=== PATIENT | male | born 1965 | race African-American/Black ===

== ENCOUNTER 2017-02-10 23:59 | Emergency (ER) | payer MEDICAID, OTHER ==
[~2017-02-10] VITALS: Ht 180.3 cm; Wt 86.2 kg
[~2017-02-10 23:59] MED LIST: ATOR20TA PO; BENA20TA3 PO; INSLAN SQ
[2017-02-11] MEDS ORDERED: IBUPROFEN 600MG TABLET PO STA (02:19)
[2017-02-11] MEDS ORDERED: SODIUM CHLORIDE 0.9% 1,000 ML IV ONE (02:19)
[2017-02-11 02:42] LABS: HEMATOCRIT. 27.9 % (42.0-52.0); HEMOGLOBIN. 9.5 g/dL (14.0-18.0); LYMPHOCYTES % 26.2 % (20.0-50.0); MEAN CORPUSCULAR HEMOGLOBIN 30.3 pg (28.0-32.0); MEAN CORPUSCULAR VOLUME 88.8 fL (80.0-94.0); MEAN PLATELET VOLUME 7.6 fl (7.4-10.4); MONOCYTES % 6.5 % (2.0-8.0); NEUTROPHILS % 62.3 % (40.0-76.0); PLATELET 300 x1000/uL (130-400); RED BLOOD CELL COUNT 3.14 mill/uL (4.7-6.1); RED CELL DISTRIBUTION WIDTH 13.6 % (11.6-14.6)
[2017-02-11 05:00] VITALS: BP 141/72
== END 2017-02-11 05:15 | disposition home or self-care (01) ==
LOC: ER 23:59
DX: R45.1 Restlessness and agitation (principal); N28.9 Disorder of kidney and ureter, unspecified; E11.65 Type 2 diabetes mellitus with hyperglycemia; E78.00 Pure hypercholesterolemia, unspecified; I10 Essential (primary) hypertension; G40.909 Epilepsy, unspecified, not intractable, without status epilepticus; D64.9 Anemia, unspecified; R51 Headache; R00.2 Palpitations; Z79.4 Long term (current) use of insulin
CPT/HCPCS: 36415; 80048; 82962; 85025; 93005; 96360; 99285; Z7610; J7030

== ENCOUNTER 2017-08-23 23:17 | Emergency (ER) | payer OTHER ==
[~2017-08-23] VITALS: Ht 182.9 cm; Wt 91.0 kg
[2017-08-23] MEDS ORDERED: MORPHINE SULFATE 4 MG/ML CPJ (NOT FOR IM USE) IV STA (23:54)
[2017-08-23] MEDS ORDERED: ONDANSETRON HCL 4MG/2ML VIAL IV STA (23:54)
[2017-08-24 00:14] LABS: BASOPHILS % 0.5 % (0.0-2.0); EOSINOPHILS % 4.4 % (0.0-5.0); HEMOGLOBIN. 10.5 g/dL (14.0-18.0); LYMPHOCYTES % 18.8 % (20.0-50.0); MEAN CORPUSCULAR HEMOGLOBIN 30.8 pg (28.0-32.0); MEAN CORPUSCULAR VOLUME 91.2 fL (80.0-94.0); MEAN PLATELET VOLUME 7.9 fl (7.4-10.4); MONOCYTES % 5.7 % (2.0-8.0); NEUTROPHILS % 70.6 % (40.0-76.0); PLATELET 306 x1000/uL (130-400); RED CELL DISTRIBUTION WIDTH 14.2 % (11.6-14.6)
[2017-08-24 00:27] LABS: CHLORIDE 106 mEq/L (98-107)
[2017-08-24 02:03] VITALS: BP 153/95
== END 2017-08-24 02:30 | disposition home or self-care (01) ==
LOC: ER 23:17
DX: S29.8XXA Other specified injuries of thorax, initial encounter (principal); N28.9 Disorder of kidney and ureter, unspecified; R56.9 Unspecified convulsions; I10 Essential (primary) hypertension; E78.00 Pure hypercholesterolemia, unspecified; E11.9 Type 2 diabetes mellitus without complications; Z79.4 Long term (current) use of insulin; Z98.890 Other specified postprocedural states; Y08.89XA Assault by other specified means, initial encounter; Y93.89 Activity, other specified; Y92.89 Other specified places as the place of occurrence of the external cause; Y99.8 Other external cause status
CPT/HCPCS: 36415; 71045; 73030; 80053; 84484; 85025; 93005; 96374; 96375; 99285; J2270; J2405; Z7610

== ENCOUNTER 2019-10-11 19:50 | Inpatient (IN) | payer OTHER ==
[~2019-10-11] VITALS: Ht 185.4 cm; Wt 88.5 kg
[~2019-10-11 19:50] MED LIST changes: +BENA20TA10 PO; -BENA20TA3 PO
[2019-10-11 20:42] LABS: BASOPHILS % 1.2 % (0.0-2.0); EOSINOPHILS % 2.1 % (0.0-5.0); HEMATOCRIT. 32.9 % (42.0-52.0); HEMOGLOBIN. 11.4 g/dL (14.0-18.0); LYMPHOCYTES % 30.4 % (20.0-50.0); MEAN CORPUSCULAR HEMOGLOBIN 30.9 pg (28.0-32.0); MEAN CORPUSCULAR VOLUME 89.5 fL (80.0-94.0); MEAN PLATELET VOLUME 7.8 fl (7.4-10.4); MONOCYTES % 7.3 % (2.0-8.0); PLATELET 284 x1000/uL (130-400); RED BLOOD CELL COUNT 3.68 mill/uL (4.7-6.1); RED CELL DISTRIBUTION WIDTH 15.5 % (11.6-14.6)
[2019-10-11 20:43] LABS: INR 0.9; PROTHROMBIN TIME 10.2 sec (9.6-11.0)
[2019-10-11 20:47] LABS: CHLORIDE 101 mEq/L (98-107)
[2019-10-11 20:51] LABS: ETHANOL BLOOD < 10 mg/dL
[2019-10-11 20:53] LABS: LDL CHOLESTEROL 104 mg/dL (5-100)
[2019-10-11] MEDS ORDERED: ASPIRIN 325MG EC TABLET PO SCH (21:30)
[2019-10-11 23:20] VITALS: BP 134/95
[2019-10-12] MEDS ORDERED: DEXTROSE 50% WATER 50ML SYRINGE IV PRN (01:45)
[2019-10-12] MEDS ORDERED: MORPHINE SULFATE 2 MG/ML CPJ (NOT FOR IM USE) IV PRN (01:45)
[2019-10-12] MEDS ORDERED: HEPARIN BOLUS PRN aPTT 30-44 IV (02:15)
[2019-10-12] MEDS ORDERED: HEPARIN 60 UNITS/KG BOLUS IV SCH (02:15)
[2019-10-12] MEDS ORDERED: HEPARIN BOLUS PRN aPTT <30 IV (02:15)
[2019-10-12] MEDS ORDERED: HEPARIN 25,000 UNITS PREMIX 500 ML IV SCH (02:30)
[2019-10-12 04:00] VITALS: BP 187/107
[2019-10-12] MEDS ORDERED: NITROGLYCERIN OINT 1GM/INCH UDPKT TD SCH (06:00)
[2019-10-12] MEDS: SEVELAMER CARBONATE 800 MG TABLET PO SCH ×3 (06:56→17:50)
[2019-10-12] MEDS: BLOOD SUGAR DIAGNOSTIC STRIP TEST SCH ×4 (06:56→20:24)
[2019-10-12] MEDS: INSULIN LISPRO 100 UNITS/ML SUBCUT SCH ×4 (06:56→21:28)
[2019-10-12 08:00] VITALS: BP 171/98
[2019-10-12] MEDS ORDERED: CLONIDINE 0.1MG TABLET PO PRN ×2 (08:15→09:30)
[2019-10-12] MEDS ORDERED: METOPROLOL TARTRATE 50MG TABLET PO SCH (09:00)
[2019-10-12] MEDS ORDERED: HEPARIN 5000 UNITS/ML VIAL SUBCUT SCH (09:00)
[2019-10-12] MEDS: ASPIRIN 325MG EC TABLET PO SCH (09:48)
[2019-10-12] MEDS: FOLIC ACID/VITAMIN B COMP W-C TABLET PO SCH (09:48)
[2019-10-12] MEDS: INSULIN GLARGINE UD 100 UNITS/ML SYR SUBCUT SCH ×2 (10:00→21:29)
[2019-10-12] MEDS: SODIUM CHLORIDE 0.45% 1,000 ML IV SCH (10:19)
[2019-10-12 12:00] VITALS: BP 185/102
[2019-10-12] MEDS: ENOXAPARIN 100MG/ML SYR SUBCUT SCH (13:27)
[2019-10-12] MEDS: NITROGLYCERIN OINT 1GM/INCH UDPKT TD SCH ×2 (13:49→21:49)
[2019-10-12 14:00] VITALS: BP 170/98
[2019-10-12 16:00] VITALS: BP 170/98
[2019-10-12 20:00] VITALS: BP 227/111
[2019-10-12] MEDS ORDERED: AMLODIPINE 5MG TABLET PO SCH (21:00)
[2019-10-12] MEDS: ATORVASTATIN CALCIUM 40MG TABLET PO SCH (21:27)
[2019-10-12] MEDS ORDERED: CLONIDINE 0.2MG TABLET PO PRN (21:30)
[2019-10-12] MEDS: CLONIDINE 0.2MG TABLET PO PRN (21:49)
[2019-10-13] VITALS: BP 178/99
[2019-10-13] MEDS: SODIUM CHLORIDE 0.45% 1,000 ML IV SCH ×3 (00:02→23:45)
[2019-10-13 04:00] VITALS: BP 173/94
[2019-10-13] MEDS: BLOOD SUGAR DIAGNOSTIC STRIP TEST SCH ×4 (06:56→20:44)
[2019-10-13] MEDS: NITROGLYCERIN OINT 1GM/INCH UDPKT TD SCH ×3 (06:56→18:14)
[2019-10-13 07:44] LABS: BASOPHILS % 0.6 % (0.0-2.0); EOSINOPHILS % 0.5 % (0.0-5.0); HEMATOCRIT. 32.9 % (42.0-52.0); HEMOGLOBIN. 11.2 g/dL (14.0-18.0); LYMPHOCYTES % 16.2 % (20.0-50.0); MEAN CORPUSCULAR HEMOGLOBIN 30.8 pg (28.0-32.0); MEAN CORPUSCULAR VOLUME 90.5 fL (80.0-94.0); MONOCYTES % 4.3 % (2.0-8.0); NEUTROPHILS % 78.4 % (40.0-76.0); PLATELET 306 x1000/uL (130-400); RED BLOOD CELL COUNT 3.63 mill/uL (4.7-6.1); RED CELL DISTRIBUTION WIDTH 15.4 % (11.6-14.6)
[2019-10-13 08:00] VITALS: BP 130/64
[2019-10-13 08:07] LABS: CHLORIDE 104 mEq/L (98-107)
[2019-10-13 08:17] LABS: PHOSPHORUS 4.1 mg/dL (2.5-4.9)
[2019-10-13] MEDS: SEVELAMER CARBONATE 800 MG TABLET PO SCH ×3 (08:26→18:14)
[2019-10-13] MEDS: ASPIRIN 325MG EC TABLET PO SCH (08:27)
[2019-10-13] MEDS: FOLIC ACID/VITAMIN B COMP W-C TABLET PO SCH (08:27)
[2019-10-13] MEDS: CLONIDINE 0.2MG TABLET PO PRN (08:27)
[2019-10-13] MEDS: INSULIN LISPRO 100 UNITS/ML SUBCUT SCH ×4 (08:28→20:45)
[2019-10-13] MEDS: AMLODIPINE 5MG TABLET PO SCH (09:00)
[2019-10-13] MEDS ORDERED: HYDRALAZINE 20MG/ML VIAL IV PRN (10:30)
[2019-10-13] MEDS: INSULIN GLARGINE UD 100 UNITS/ML SYR SUBCUT SCH (11:08)
[2019-10-13 12:00] VITALS: BP 131/78
[2019-10-13] MEDS: ENOXAPARIN 100MG/ML SYR SUBCUT SCH (12:45)
[2019-10-13 18:44] LABS: CANNABINOID URINE SCREEN NEGATIVE (NEGATIVE); METHADONE URINE SCREEN NEGATIVE (NEGATIVE); OPIATES URINE SCREEN NEGATIVE (NEGATIVE); PHENCYCLIDINE URINE SCREEN NEGATIVE (NEGATIVE)
[2019-10-13 18:46] LABS: *AMPHETAMINES SCREEN URINE NEGATIVE (NEGATIVE); *BARBITURATES SCREEN URINE NEGATIVE (NEGATIVE); *BENZODIAZEPINES SCREEN URINE NEGATIVE (NEGATIVE); *COCAINE SCREEN URINE NEGATIVE (NEGATIVE)
[2019-10-13 20:00] VITALS: BP 171/103
[2019-10-14] VITALS: BP 161/85
[2019-10-14] MEDS: INSULIN GLARGINE UD 100 UNITS/ML SYR SUBCUT SCH ×3 (02:23→21:52)
[2019-10-14] MEDS: ATORVASTATIN CALCIUM 40MG TABLET PO SCH ×2 (02:25→20:57)
[2019-10-14] MEDS: AMLODIPINE 5MG TABLET PO SCH ×3 (02:26→20:57)
[2019-10-14 04:00] VITALS: BP 144/84
[2019-10-14] MEDS: BLOOD SUGAR DIAGNOSTIC STRIP TEST SCH ×4 (06:30→20:58)
[2019-10-14] MEDS: SEVELAMER CARBONATE 800 MG TABLET PO SCH ×3 (07:50→17:57)
[2019-10-14 08:00] VITALS: BP 147/86
[2019-10-14] MEDS: FOLIC ACID/VITAMIN B COMP W-C TABLET PO SCH (09:00)
[2019-10-14 12:00] VITALS: BP 148/81
[2019-10-14 12:38] LABS: BASOPHILS % 0.9 % (0.0-2.0); EOSINOPHILS % 0.5 % (0.0-5.0); HEMATOCRIT. 30.9 % (42.0-52.0); HEMOGLOBIN. 10.6 g/dL (14.0-18.0); LYMPHOCYTES % 24.4 % (20.0-50.0); MEAN CORPUSCULAR HEMOGLOBIN 30.8 pg (28.0-32.0); MEAN CORPUSCULAR VOLUME 89.7 fL (80.0-94.0); MEAN PLATELET VOLUME 7.3 fl (7.4-10.4); MONOCYTES % 6.1 % (2.0-8.0); NEUTROPHILS % 68.1 % (40.0-76.0); PLATELET 310 x1000/uL (130-400); RED BLOOD CELL COUNT 3.44 mill/uL (4.7-6.1); RED CELL DISTRIBUTION WIDTH 15.4 % (11.6-14.6)
[2019-10-14] MEDS: INSULIN LISPRO 100 UNITS/ML SUBCUT SCH ×3 (13:38→21:22)
[2019-10-14] MEDS: METOPROLOL TARTRATE 25MG TABLET PO SCH ×2 (13:38→20:58)
[2019-10-14 16:00] VITALS: BP 156/87
[2019-10-14 16:09] LABS: BASOPHILS % 0.9 % (0.0-2.0); EOSINOPHILS % 0.8 % (0.0-5.0); HEMATOCRIT. 32.8 % (42.0-52.0); LYMPHOCYTES % 22.2 % (20.0-50.0); MEAN CORPUSCULAR HEMOGLOBIN 30.3 pg (28.0-32.0); MEAN CORPUSCULAR VOLUME 90.2 fL (80.0-94.0); MEAN PLATELET VOLUME 7.6 fl (7.4-10.4); MONOCYTES % 7.1 % (2.0-8.0); PLATELET 340 x1000/uL (130-400); RED BLOOD CELL COUNT 3.63 mill/uL (4.7-6.1); RED CELL DISTRIBUTION WIDTH 15.2 % (11.6-14.6)
[2019-10-14 16:16] LABS: CHLORIDE 105 mEq/L (98-107)
[2019-10-14 20:00] VITALS: BP 191/93
[2019-10-15] VITALS: BP 156/80
[2019-10-15 04:00] VITALS: BP 159/84
[2019-10-15] MEDS: BLOOD SUGAR DIAGNOSTIC STRIP TEST SCH ×4 (06:25→21:44)
[2019-10-15] MEDS: INSULIN LISPRO 100 UNITS/ML SUBCUT SCH ×4 (07:15→21:44)
[2019-10-15] MEDS: SEVELAMER CARBONATE 800 MG TABLET PO SCH ×3 (07:55→16:44)
[2019-10-15 08:00] VITALS: BP 162/91
[2019-10-15] MEDS: METOPROLOL TARTRATE 25MG TABLET PO SCH (09:35)
[2019-10-15] MEDS: FOLIC ACID/VITAMIN B COMP W-C TABLET PO SCH (09:35)
[2019-10-15] MEDS: AMLODIPINE 5MG TABLET PO SCH ×2 (09:36→21:20)
[2019-10-15 12:00] VITALS: BP 169/83
[2019-10-15] MEDS ORDERED: ACETAMINOPHEN WITH CODEINE 300/30MG TABLET PO NR (12:00)
[2019-10-15] MEDS: LOSARTAN POTASSIUM 50 MG TABLET PO SCH (13:23)
[2019-10-15] MEDS: INSULIN GLARGINE UD 100 UNITS/ML SYR SUBCUT SCH ×2 (13:30→22:07)
[2019-10-15 16:00] VITALS: BP 155/83
[2019-10-15] MEDS ORDERED: ACETAMINOPHEN WITH CODEINE 300/30MG TABLET PO PRN (16:00)
[2019-10-15 16:53] LABS: PHOSPHORUS 1.4 mg/dL (2.5-4.9)
[2019-10-15 20:00] VITALS: BP 184/86
[2019-10-15] MEDS: METOPROLOL TARTRATE 50MG TABLET PO SCH (21:20)
[2019-10-15] MEDS: ATORVASTATIN CALCIUM 40MG TABLET PO SCH (21:20)
[2019-10-16 00:12] VITALS: BP 167/80
[2019-10-16 04:53] VITALS: BP 130/70
[2019-10-16] MEDS: BLOOD SUGAR DIAGNOSTIC STRIP TEST SCH ×4 (06:45→20:51)
[2019-10-16] MEDS: INSULIN LISPRO 100 UNITS/ML SUBCUT SCH ×4 (07:50→21:05)
[2019-10-16 08:00] VITALS: BP 165/93
[2019-10-16] MEDS: FOLIC ACID/VITAMIN B COMP W-C TABLET PO SCH (08:41)
[2019-10-16] MEDS: AMLODIPINE 5MG TABLET PO SCH ×2 (08:41→21:03)
[2019-10-16] MEDS: LOSARTAN POTASSIUM 50 MG TABLET PO SCH (08:41)
[2019-10-16] MEDS: ASPIRIN 81MG TABLET PO SCH (08:41)
[2019-10-16] MEDS: SEVELAMER CARBONATE 800 MG TABLET PO SCH ×3 (08:41→18:13)
[2019-10-16] MEDS: METOPROLOL TARTRATE 50MG TABLET PO SCH ×2 (08:41→21:03)
[2019-10-16] MEDS: CLONIDINE 0.2MG TABLET PO PRN (08:43)
[2019-10-16 08:59] LABS: BASOPHILS % 0.9 % (0.0-2.0); EOSINOPHILS % 1.7 % (0.0-5.0); HEMATOCRIT. 33.6 % (42.0-52.0); HEMOGLOBIN. 11.5 g/dL (14.0-18.0); LYMPHOCYTES % 26.7 % (20.0-50.0); MEAN CORPUSCULAR HEMOGLOBIN 30.9 pg (28.0-32.0); MEAN CORPUSCULAR VOLUME 90.4 fL (80.0-94.0); MEAN PLATELET VOLUME 7.6 fl (7.4-10.4); MONOCYTES % 5.8 % (2.0-8.0); NEUTROPHILS % 64.9 % (40.0-76.0); PLATELET 321 x1000/uL (130-400); RED BLOOD CELL COUNT 3.71 mill/uL (4.7-6.1)
[2019-10-16 09:15] LABS: PHOSPHORUS 4.1 mg/dL (2.5-4.9)
[2019-10-16] MEDS: INSULIN GLARGINE UD 100 UNITS/ML SYR SUBCUT SCH ×2 (10:00→22:34)
[2019-10-16 12:00] VITALS: BP_SYST 161; BP_SYST 162; BP_DIAS 91
[2019-10-16] MEDS: CLONIDINE 0.2MG TABLET PO SCH ×2 (13:40→22:33)
[2019-10-16 16:03] VITALS: BP 116/71
[2019-10-16] MEDS ORDERED: HYDRALAZINE 20MG/ML VIAL IV PRN (18:15)
[2019-10-16 20:00] VITALS: BP 177/92
[2019-10-16] MEDS: ATORVASTATIN CALCIUM 40MG TABLET PO SCH (21:02)
[2019-10-17] VITALS (20 sets, daily range): BP systolic 96–175; BP diastolic 49–99
[2019-10-17] MEDS: CLONIDINE 0.2MG TABLET PO SCH ×3 (05:47→22:00)
[2019-10-17 06:46] LABS: BASOPHILS % 1.3 % (0.0-2.0); EOSINOPHILS % 3.1 % (0.0-5.0); HEMATOCRIT. 30.8 % (42.0-52.0); HEMOGLOBIN. 10.8 g/dL (14.0-18.0); LYMPHOCYTES % 36.2 % (20.0-50.0); MEAN CORPUSCULAR HEMOGLOBIN 31.5 pg (28.0-32.0); MEAN CORPUSCULAR VOLUME 89.8 fL (80.0-94.0); MEAN PLATELET VOLUME 7.8 fl (7.4-10.4); MONOCYTES % 5.1 % (2.0-8.0); NEUTROPHILS % 54.3 % (40.0-76.0); PLATELET 317 x1000/uL (130-400); RED BLOOD CELL COUNT 3.43 mill/uL (4.7-6.1); RED CELL DISTRIBUTION WIDTH 15.2 % (11.6-14.6)
[2019-10-17 06:59] LABS: PHOSPHORUS 4.7 mg/dL (2.5-4.9)
[2019-10-17] MEDS ORDERED: ALTEPLASE 2MG/VIAL ITC NR (07:15)
[2019-10-17] MEDS: BLOOD SUGAR DIAGNOSTIC STRIP TEST SCH ×4 (07:20→21:00)
[2019-10-17] MEDS: SEVELAMER CARBONATE 800 MG TABLET PO SCH ×3 (07:50→18:28)
[2019-10-17] MEDS: INSULIN LISPRO 100 UNITS/ML SUBCUT SCH ×4 (07:50→22:20)
[2019-10-17] MEDS ORDERED: SODIUM BICARBONATE 4% (2.4MEQ) 5ML VIAL IV ONE (07:58)
[2019-10-17] MEDS ORDERED: IOHEXOL-300 100 ML BOTTLE ONE (07:59)
[2019-10-17] MEDS ORDERED: LIDOCAINE HCL 1% 20ML VIAL (Pyxis) INJ ONE (07:59)
[2019-10-17] MEDS ORDERED: FENTANYL CITRATE/PF 50MCG/ML 2ML VIAL ONE (08:34)
[2019-10-17] MEDS ORDERED: HEPARIN 1000 UNITS/ML 10ML ONE (08:46)
[2019-10-17] MEDS ORDERED: HEPARIN 1000 UNITS/ML 10ML IV ONE (09:00)
[2019-10-17] MEDS: METOPROLOL TARTRATE 50MG TABLET PO SCH ×2 (09:00→21:00)
[2019-10-17] MEDS ORDERED: IOHEXOL-300 50 ML BOTTLE IV ONE (09:25)
[2019-10-17] MEDS ORDERED: FENTANYL CITRATE/PF 50MCG/ML 2ML VIAL IV ONE (09:30)
[2019-10-17] MEDS: INSULIN GLARGINE UD 100 UNITS/ML SYR SUBCUT SCH ×2 (10:00→22:19)
[2019-10-17] MEDS ORDERED: AMLO5TAB88 PO (11:31)
[2019-10-17] MEDS ORDERED: LIP40 PO (11:31)
[2019-10-17] MEDS ORDERED: SEVE800T8 PO (11:31)
[2019-10-17] MEDS ORDERED: METO-539 PO (11:31)
[2019-10-17] MEDS ORDERED: LANTUSUD SUBCUT (11:31)
[2019-10-17] MEDS ORDERED: CLON0.2T12 PO (11:31)
[2019-10-17] MEDS ORDERED: ASPI-1160 PO (11:31)
[2019-10-17] MEDS ORDERED: LOSA50TA3 PO (11:31)
[2019-10-17] MEDS ORDERED: NEPVIT PO (11:31)
[2019-10-17] MEDS: ASPIRIN 81MG TABLET PO SCH (15:51)
[2019-10-17] MEDS: AMLODIPINE 5MG TABLET PO SCH ×2 (15:51→21:00)
[2019-10-17] MEDS: FOLIC ACID/VITAMIN B COMP W-C TABLET PO SCH (15:51)
[2019-10-17] MEDS: LOSARTAN POTASSIUM 50 MG TABLET PO SCH (15:51)
[2019-10-17] MEDS: ATORVASTATIN CALCIUM 40MG TABLET PO SCH (22:12)
[2019-10-18 00:06] VITALS: BP 144/86
[2019-10-18 04:15] VITALS: BP 136/77
[2019-10-18] MEDS: CLONIDINE 0.2MG TABLET PO SCH ×4 (06:06→22:49)
[2019-10-18] MEDS: BLOOD SUGAR DIAGNOSTIC STRIP TEST SCH ×4 (06:06→20:59)
[2019-10-18 07:44] LABS: BASOPHILS % 0.7 % (0.0-2.0); EOSINOPHILS % 2.3 % (0.0-5.0); HEMATOCRIT. 29.9 % (42.0-52.0); HEMOGLOBIN. 10.2 g/dL (14.0-18.0); LYMPHOCYTES % 22.1 % (20.0-50.0); MEAN CORPUSCULAR HEMOGLOBIN 30.8 pg (28.0-32.0); MEAN PLATELET VOLUME 7.9 fl (7.4-10.4); MONOCYTES % 4.5 % (2.0-8.0); NEUTROPHILS % 70.4 % (40.0-76.0); PLATELET 309 x1000/uL (130-400); RED BLOOD CELL COUNT 3.32 mill/uL (4.7-6.1); RED CELL DISTRIBUTION WIDTH 15.5 % (11.6-14.6)
[2019-10-18 07:48] LABS: PHOSPHORUS 5.5 mg/dL (2.5-4.9)
[2019-10-18] MEDS: INSULIN LISPRO 100 UNITS/ML SUBCUT SCH ×4 (07:50→21:00)
[2019-10-18 08:00] VITALS: BP 145/81
[2019-10-18] MEDS: FOLIC ACID/VITAMIN B COMP W-C TABLET PO SCH (09:48)
[2019-10-18] MEDS: SEVELAMER CARBONATE 800 MG TABLET PO SCH ×3 (09:48→19:18)
[2019-10-18] MEDS: ASPIRIN 81MG TABLET PO SCH (09:48)
[2019-10-18] MEDS: METOPROLOL TARTRATE 50MG TABLET PO SCH ×2 (09:49→21:38)
[2019-10-18] MEDS: AMLODIPINE 5MG TABLET PO SCH ×2 (09:49→21:39)
[2019-10-18] MEDS: LOSARTAN POTASSIUM 50 MG TABLET PO SCH (09:49)
[2019-10-18] MEDS: INSULIN GLARGINE UD 100 UNITS/ML SYR SUBCUT SCH ×2 (09:51→22:51)
[2019-10-18 12:00] VITALS: BP 135/81
[2019-10-18 16:00] VITALS: BP 143/74
[2019-10-18 20:00] VITALS: BP_SYST 126; BP_SYST 159; BP_DIAS 46; BP_DIAS 64
[2019-10-18] MEDS: ATORVASTATIN CALCIUM 40MG TABLET PO SCH (21:39)
[2019-10-19] VITALS: BP 167/67
[2019-10-19 04:00] VITALS: BP 158/61
[2019-10-19] MEDS: CLONIDINE 0.2MG TABLET PO SCH ×3 (05:11→21:48)
[2019-10-19 06:12] LABS: BASOPHILS % 0.7 % (0.0-2.0); EOSINOPHILS % 3.3 % (0.0-5.0); HEMATOCRIT. 29.3 % (42.0-52.0); HEMOGLOBIN. 10.1 g/dL (14.0-18.0); LYMPHOCYTES % 26.9 % (20.0-50.0); MEAN CORPUSCULAR HEMOGLOBIN 30.6 pg (28.0-32.0); MEAN CORPUSCULAR VOLUME 89.2 fL (80.0-94.0); MEAN PLATELET VOLUME 7.7 fl (7.4-10.4); MONOCYTES % 4.7 % (2.0-8.0); NEUTROPHILS % 64.4 % (40.0-76.0); PLATELET 300 x1000/uL (130-400); RED BLOOD CELL COUNT 3.29 mill/uL (4.7-6.1); RED CELL DISTRIBUTION WIDTH 15.1 % (11.6-14.6)
[2019-10-19] MEDS: BLOOD SUGAR DIAGNOSTIC STRIP TEST SCH ×4 (06:25→21:48)
[2019-10-19 07:01] LABS: PHOSPHORUS 5.5 mg/dL (2.5-4.9)
[2019-10-19 07:27] VITALS: BP 94/57
[2019-10-19] MEDS: SEVELAMER CARBONATE 800 MG TABLET PO SCH ×3 (08:50→18:47)
[2019-10-19] MEDS: INSULIN LISPRO 100 UNITS/ML SUBCUT SCH ×4 (08:53→22:00)
[2019-10-19] MEDS: ASPIRIN 81MG TABLET PO SCH (09:54)
[2019-10-19] MEDS: LOSARTAN POTASSIUM 50 MG TABLET PO SCH (09:54)
[2019-10-19] MEDS: AMLODIPINE 5MG TABLET PO SCH ×2 (09:54→21:48)
[2019-10-19] MEDS: METOPROLOL TARTRATE 50MG TABLET PO SCH ×2 (09:55→21:48)
[2019-10-19] MEDS: FOLIC ACID/VITAMIN B COMP W-C TABLET PO SCH (09:55)
[2019-10-19 12:30] VITALS: BP 138/73
[2019-10-19] MEDS: INSULIN GLARGINE UD 100 UNITS/ML SYR SUBCUT SCH ×2 (13:11→21:59)
[2019-10-19 16:30] VITALS: BP 138/73
[2019-10-19 20:00] VITALS: BP 132/81
[2019-10-19] MEDS: ATORVASTATIN CALCIUM 40MG TABLET PO SCH (21:48)
[2019-10-20] VITALS: BP 158/76
[2019-10-20 04:00] VITALS: BP 147/81
[2019-10-20] MEDS: CLONIDINE 0.2MG TABLET PO SCH ×3 (06:25→21:40)
[2019-10-20] MEDS: BLOOD SUGAR DIAGNOSTIC STRIP TEST SCH ×3 (07:44→17:20)
[2019-10-20] MEDS: INSULIN LISPRO 100 UNITS/ML SUBCUT SCH ×4 (07:50→21:51)
[2019-10-20 08:00] VITALS: BP 151/82
[2019-10-20 08:30] LABS: BASOPHILS % 0.8 % (0.0-2.0); EOSINOPHILS % 4.3 % (0.0-5.0); HEMATOCRIT. 29.4 % (42.0-52.0); HEMOGLOBIN. 10.3 g/dL (14.0-18.0); LYMPHOCYTES % 28.2 % (20.0-50.0); MEAN CORPUSCULAR HEMOGLOBIN 31.2 pg (28.0-32.0); MEAN CORPUSCULAR VOLUME 89.4 fL (80.0-94.0); MEAN PLATELET VOLUME 8.1 fl (7.4-10.4); NEUTROPHILS % 60.7 % (40.0-76.0); PLATELET 312 x1000/uL (130-400); RED BLOOD CELL COUNT 3.29 mill/uL (4.7-6.1); RED CELL DISTRIBUTION WIDTH 15.2 % (11.6-14.6)
[2019-10-20 08:47] LABS: CHLORIDE 100 mEq/L (98-107)
[2019-10-20 08:57] LABS: PHOSPHORUS 6.5 mg/dL (2.5-4.9)
[2019-10-20] MEDS: METOPROLOL TARTRATE 50MG TABLET PO SCH ×2 (09:00→21:40)
[2019-10-20] MEDS: SEVELAMER CARBONATE 800 MG TABLET PO SCH ×3 (10:02→18:00)
[2019-10-20] MEDS: ASPIRIN 81MG TABLET PO SCH (10:03)
[2019-10-20] MEDS: FOLIC ACID/VITAMIN B COMP W-C TABLET PO SCH (10:03)
[2019-10-20] MEDS: INSULIN GLARGINE UD 100 UNITS/ML SYR SUBCUT SCH ×2 (10:21→21:50)
[2019-10-20] MEDS: AMLODIPINE 5MG TABLET PO SCH ×2 (10:25→21:40)
[2019-10-20] MEDS: LOSARTAN POTASSIUM 50 MG TABLET PO SCH (10:25)
[2019-10-20 12:00] VITALS: BP 147/72
[2019-10-20 15:42] LABS: HEPATITIS B SURFACE ANTIGEN NEGATIVE
[2019-10-20 16:00] VITALS: BP 158/85
[2019-10-20 16:12] LABS: HEPATITIS A AB IGM NEGATIVE (NEGATIVE)
[2019-10-20 20:00] VITALS: BP 158/80
[2019-10-20] MEDS: ATORVASTATIN CALCIUM 40MG TABLET PO SCH (21:40)
[2019-10-21] VITALS: BP 138/75
[2019-10-21 04:00] VITALS: BP 123/69
[2019-10-21] MEDS: CLONIDINE 0.2MG TABLET PO SCH ×3 (06:17→21:10)
[2019-10-21 06:30] LABS: BASOPHILS % 0.8 % (0.0-2.0); EOSINOPHILS % 3.5 % (0.0-5.0); HEMATOCRIT. 27.1 % (42.0-52.0); HEMOGLOBIN. 9.4 g/dL (14.0-18.0); LYMPHOCYTES % 22.2 % (20.0-50.0); MEAN CORPUSCULAR VOLUME 89.5 fL (80.0-94.0); MONOCYTES % 5.3 % (2.0-8.0); NEUTROPHILS % 68.2 % (40.0-76.0); PLATELET 310 x1000/uL (130-400); RED BLOOD CELL COUNT 3.03 mill/uL (4.7-6.1); RED CELL DISTRIBUTION WIDTH 15.4 % (11.6-14.6)
[2019-10-21 06:47] LABS: PHOSPHORUS 6.8 mg/dL (2.5-4.9)
[2019-10-21] MEDS: INSULIN LISPRO 100 UNITS/ML SUBCUT SCH ×4 (07:50→21:06)
[2019-10-21 08:00] VITALS: BP 127/69
[2019-10-21] MEDS: FOLIC ACID/VITAMIN B COMP W-C TABLET PO SCH (09:52)
[2019-10-21] MEDS: ASPIRIN 81MG TABLET PO SCH (09:52)
[2019-10-21] MEDS: LOSARTAN POTASSIUM 50 MG TABLET PO SCH (09:52)
[2019-10-21] MEDS: SEVELAMER CARBONATE 800 MG TABLET PO SCH ×3 (09:52→18:29)
[2019-10-21] MEDS: AMLODIPINE 5MG TABLET PO SCH ×2 (09:56→20:41)
[2019-10-21] MEDS: METOPROLOL TARTRATE 50MG TABLET PO SCH ×2 (09:56→20:42)
[2019-10-21] MEDS: INSULIN GLARGINE UD 100 UNITS/ML SYR SUBCUT SCH ×2 (10:00→21:07)
[2019-10-21] MEDS: BLOOD SUGAR DIAGNOSTIC STRIP TEST SCH ×3 (12:56→21:04)
[2019-10-21 16:00] VITALS: BP 146/75
[2019-10-21 20:00] VITALS: BP 132/69
[2019-10-21] MEDS: ATORVASTATIN CALCIUM 40MG TABLET PO SCH (20:42)
[2019-10-22] VITALS (13 sets, daily range): BP systolic 129–164; BP diastolic 59–84
[2019-10-22] MEDS: CLONIDINE 0.2MG TABLET PO SCH ×2 (06:16→21:43)
[2019-10-22 06:59] LABS: BASOPHILS % 0.4 % (0.0-2.0); EOSINOPHILS % 2.2 % (0.0-5.0); HEMATOCRIT. 25.7 % (42.0-52.0); HEMOGLOBIN. 9.1 g/dL (14.0-18.0); LYMPHOCYTES % 14.8 % (20.0-50.0); MEAN CORPUSCULAR HEMOGLOBIN 31.6 pg (28.0-32.0); MEAN CORPUSCULAR VOLUME 89.4 fL (80.0-94.0); MEAN PLATELET VOLUME 8.4 fl (7.4-10.4); MONOCYTES % 4.2 % (2.0-8.0); NEUTROPHILS % 78.4 % (40.0-76.0); PLATELET 330 x1000/uL (130-400); RED BLOOD CELL COUNT 2.87 mill/uL (4.7-6.1); RED CELL DISTRIBUTION WIDTH 14.5 % (11.6-14.6)
[2019-10-22] MEDS: BLOOD SUGAR DIAGNOSTIC STRIP TEST SCH ×4 (07:20→21:17)
[2019-10-22] MEDS: INSULIN LISPRO 100 UNITS/ML SUBCUT SCH ×4 (07:47→21:41)
[2019-10-22] MEDS: SEVELAMER CARBONATE 800 MG TABLET PO SCH ×3 (07:50→17:17)
[2019-10-22] MEDS: LOSARTAN POTASSIUM 50 MG TABLET PO SCH (09:00)
[2019-10-22] MEDS: FOLIC ACID/VITAMIN B COMP W-C TABLET PO SCH (09:00)
[2019-10-22] MEDS: METOPROLOL TARTRATE 50MG TABLET PO SCH ×2 (09:00→21:00)
[2019-10-22] MEDS: ASPIRIN 81MG TABLET PO SCH (09:00)
[2019-10-22] MEDS: AMLODIPINE 5MG TABLET PO SCH ×2 (09:00→21:00)
[2019-10-22] MEDS: INSULIN GLARGINE UD 100 UNITS/ML SYR SUBCUT SCH ×2 (10:00→21:42)
[2019-10-22 12:02] LABS: TOTAL IRON BINDING CAPACITY 247 ug/dL (250-450)
[2019-10-22 12:27] LABS: FOLIC ACID (FOLATE) SERUM >20 ng/mL ng/mL (>5.38)
[2019-10-22] MEDS ORDERED: IOHEXOL-300 100 ML BOTTLE ONE (13:56)
[2019-10-22] MEDS ORDERED: SODIUM BICARBONATE 4% (2.4MEQ) 5ML VIAL IV ONE (13:56)
[2019-10-22] MEDS ORDERED: HEPARIN 1000 UNITS/ML 10ML ONE (13:57)
[2019-10-22] MEDS ORDERED: LIDOCAINE HCL 1% 20ML VIAL (Pyxis) INJ ONE (13:57)
[2019-10-22] MEDS ORDERED: CEFAZOLIN 1000MG PREMIX 50 ML IV ONE (14:05)
[2019-10-22] MEDS ORDERED: FENTANYL CITRATE/PF 50MCG/ML 2ML VIAL ONE (14:05)
[2019-10-22] MEDS ORDERED: FENTANYL CITRATE/PF 50MCG/ML 2ML VIAL IV ONE (14:45)
[2019-10-22] MEDS: ATORVASTATIN CALCIUM 40MG TABLET PO SCH (21:43)
[2019-10-23 00:02] VITALS: BP 108/62
[2019-10-23 04:00] VITALS: BP 112/70
[2019-10-23] MEDS: BLOOD SUGAR DIAGNOSTIC STRIP TEST SCH ×4 (07:27→21:00)
[2019-10-23] MEDS: INSULIN LISPRO 100 UNITS/ML SUBCUT SCH ×4 (07:28→21:00)
[2019-10-23 07:53] LABS: BASOPHILS % 0.5 % (0.0-2.0); EOSINOPHILS % 0.6 % (0.0-5.0); HEMATOCRIT. 27.7 % (42.0-52.0); HEMOGLOBIN. 9.6 g/dL (14.0-18.0); LYMPHOCYTES % 12.7 % (20.0-50.0); MEAN CORPUSCULAR HEMOGLOBIN 30.7 pg (28.0-32.0); MEAN CORPUSCULAR VOLUME 88.9 fL (80.0-94.0); MEAN PLATELET VOLUME 8.3 fl (7.4-10.4); NEUTROPHILS % 82.2 % (40.0-76.0); PLATELET 337 x1000/uL (130-400); RED BLOOD CELL COUNT 3.12 mill/uL (4.7-6.1); RED CELL DISTRIBUTION WIDTH 14.8 % (11.6-14.6)
[2019-10-23 08:00] VITALS: BP 143/68
[2019-10-23] MEDS: SEVELAMER CARBONATE 800 MG TABLET PO SCH ×3 (08:09→17:07)
[2019-10-23] MEDS: LOSARTAN POTASSIUM 50 MG TABLET PO SCH (08:09)
[2019-10-23] MEDS: ASPIRIN 81MG TABLET PO SCH (08:09)
[2019-10-23] MEDS: AMLODIPINE 5MG TABLET PO SCH ×2 (08:10→21:28)
[2019-10-23] MEDS: METOPROLOL TARTRATE 50MG TABLET PO SCH ×2 (08:10→21:28)
[2019-10-23] MEDS: FOLIC ACID/VITAMIN B COMP W-C TABLET PO SCH (08:10)
[2019-10-23 08:16] LABS: PHOSPHORUS 5.5 mg/dL (2.5-4.9)
[2019-10-23] MEDS: INSULIN GLARGINE UD 100 UNITS/ML SYR SUBCUT SCH ×2 (10:45→21:32)
[2019-10-23 12:00] VITALS: BP 140/72
[2019-10-23] MEDS: CLONIDINE 0.2MG TABLET PO SCH ×3 (14:00→21:28)
[2019-10-23] MEDS ORDERED: HYDRALAZINE 5 MG in SODIUM CHLORIDE 0.9% 49.5 ML IV PRN (15:15)
[2019-10-23 16:00] VITALS: BP 137/75
[2019-10-23 20:00] VITALS: BP 125/68
[2019-10-23] MEDS: ATORVASTATIN CALCIUM 40MG TABLET PO SCH (21:27)
[2019-10-24] VITALS: BP 133/75
[2019-10-24 04:00] VITALS: BP 129/68
[2019-10-24] MEDS: BLOOD SUGAR DIAGNOSTIC STRIP TEST SCH ×4 (05:35→21:18)
[2019-10-24] MEDS: CLONIDINE 0.2MG TABLET PO SCH ×3 (05:46→21:01)
[2019-10-24 06:43] LABS: BASOPHILS % 0.4 % (0.0-2.0); EOSINOPHILS % 0.3 % (0.0-5.0); HEMATOCRIT. 27.2 % (42.0-52.0); HEMOGLOBIN. 9.4 g/dL (14.0-18.0); LYMPHOCYTES % 8.5 % (20.0-50.0); MEAN CORPUSCULAR HEMOGLOBIN 31.1 pg (28.0-32.0); MEAN CORPUSCULAR VOLUME 89.8 fL (80.0-94.0); MEAN PLATELET VOLUME 8.3 fl (7.4-10.4); MONOCYTES % 4.3 % (2.0-8.0); NEUTROPHILS % 86.5 % (40.0-76.0); PLATELET 354 x1000/uL (130-400); RED BLOOD CELL COUNT 3.02 mill/uL (4.7-6.1); RED CELL DISTRIBUTION WIDTH 15.1 % (11.6-14.6)
[2019-10-24 07:03] LABS: CHLORIDE 104 mEq/L (98-107)
[2019-10-24 07:12] LABS: PHOSPHORUS 3.9 mg/dL (2.5-4.9)
[2019-10-24] MEDS: SEVELAMER CARBONATE 800 MG TABLET PO SCH ×3 (07:50→17:50)
[2019-10-24 08:00] VITALS: BP 136/78
[2019-10-24] MEDS: ASPIRIN 81MG TABLET PO SCH (09:00)
[2019-10-24] MEDS: LOSARTAN POTASSIUM 50 MG TABLET PO SCH (09:00)
[2019-10-24] MEDS: AMLODIPINE 5MG TABLET PO SCH ×2 (09:00→20:41)
[2019-10-24] MEDS: METOPROLOL TARTRATE 50MG TABLET PO SCH ×2 (09:00→20:42)
[2019-10-24] MEDS: FOLIC ACID/VITAMIN B COMP W-C TABLET PO SCH (09:00)
[2019-10-24] MEDS: INSULIN LISPRO 100 UNITS/ML SUBCUT SCH ×4 (09:51→21:17)
[2019-10-24] MEDS: INSULIN GLARGINE UD 100 UNITS/ML SYR SUBCUT SCH ×2 (10:00→21:17)
[2019-10-24] MEDS: FERROUS SULFATE 325MG TABLET PO SCH (11:00)
[2019-10-24 12:00] VITALS: BP 130/73
[2019-10-24 16:00] VITALS: BP 112/65
[2019-10-24 20:00] VITALS: BP 138/73
[2019-10-24] MEDS: ATORVASTATIN CALCIUM 40MG TABLET PO SCH (20:41)
[2019-10-25 04:00] VITALS: BP 135/70
[2019-10-25] MEDS: CLONIDINE 0.2MG TABLET PO SCH ×3 (05:55→22:00)
[2019-10-25] MEDS: BLOOD SUGAR DIAGNOSTIC STRIP TEST SCH ×4 (07:03→21:13)
[2019-10-25] MEDS: INSULIN LISPRO 100 UNITS/ML SUBCUT SCH ×4 (07:03→21:48)
[2019-10-25 07:07] LABS: BASOPHILS % 0.8 % (0.0-2.0); EOSINOPHILS % 0.7 % (0.0-5.0); HEMATOCRIT. 26.4 % (42.0-52.0); HEMOGLOBIN. 9.1 g/dL (14.0-18.0); LYMPHOCYTES % 12.2 % (20.0-50.0); MEAN CORPUSCULAR HEMOGLOBIN 31.3 pg (28.0-32.0); MEAN CORPUSCULAR VOLUME 90.9 fL (80.0-94.0); MEAN PLATELET VOLUME 8.1 fl (7.4-10.4); MONOCYTES % 4.2 % (2.0-8.0); NEUTROPHILS % 82.1 % (40.0-76.0); PLATELET 369 x1000/uL (130-400); RED CELL DISTRIBUTION WIDTH 14.4 % (11.6-14.6)
[2019-10-25 07:40] LABS: PHOSPHORUS 4.9 mg/dL (2.5-4.9)
[2019-10-25 08:00] VITALS: BP 139/68
[2019-10-25] MEDS: SEVELAMER CARBONATE 800 MG TABLET PO SCH ×3 (08:38→16:54)
[2019-10-25] MEDS: METOPROLOL TARTRATE 50MG TABLET PO SCH ×2 (08:38→21:00)
[2019-10-25] MEDS: FOLIC ACID/VITAMIN B COMP W-C TABLET PO SCH (08:38)
[2019-10-25] MEDS: FERROUS SULFATE 325MG TABLET PO SCH (08:38)
[2019-10-25] MEDS: AMLODIPINE 5MG TABLET PO SCH ×2 (08:38→21:00)
[2019-10-25] MEDS: ASPIRIN 81MG TABLET PO SCH (08:38)
[2019-10-25] MEDS: LOSARTAN POTASSIUM 50 MG TABLET PO SCH (08:43)
[2019-10-25] MEDS: INSULIN GLARGINE UD 100 UNITS/ML SYR SUBCUT SCH ×2 (09:19→21:49)
[2019-10-25] MEDS ORDERED: LEVOFLOXACIN 500MG PREMIX 100 ML IV NR (10:00)
[2019-10-25 12:00] VITALS: BP 151/83
[2019-10-25 16:00] VITALS: BP 115/72
[2019-10-25 20:00] VITALS: BP 144/78
[2019-10-25] MEDS ORDERED: EPOETIN ALFA 4000UNITS/ML VIAL SUBCUT SCH (21:00)
[2019-10-25] MEDS: ATORVASTATIN CALCIUM 40MG TABLET PO SCH (21:12)
[2019-10-26] VITALS: BP 140/77
[2019-10-26 04:00] VITALS: BP 127/75
[2019-10-26 06:07] LABS: BASOPHILS % 0.7 % (0.0-2.0); EOSINOPHILS % 1.9 % (0.0-5.0); HEMATOCRIT. 26.3 % (42.0-52.0); HEMOGLOBIN. 8.9 g/dL (14.0-18.0); LYMPHOCYTES % 18.8 % (20.0-50.0); MEAN CORPUSCULAR HEMOGLOBIN 30.8 pg (28.0-32.0); MEAN CORPUSCULAR VOLUME 91.3 fL (80.0-94.0); MONOCYTES % 4.9 % (2.0-8.0); NEUTROPHILS % 73.7 % (40.0-76.0); PLATELET 371 x1000/uL (130-400); RED BLOOD CELL COUNT 2.88 mill/uL (4.7-6.1); RED CELL DISTRIBUTION WIDTH 14.4 % (11.6-14.6)
[2019-10-26] MEDS: CLONIDINE 0.2MG TABLET PO SCH ×3 (06:28→20:44)
[2019-10-26] MEDS: BLOOD SUGAR DIAGNOSTIC STRIP TEST SCH ×4 (06:34→20:44)
[2019-10-26 08:00] VITALS: BP 119/78
[2019-10-26] MEDS: LOSARTAN POTASSIUM 50 MG TABLET PO SCH (09:42)
[2019-10-26] MEDS: SEVELAMER CARBONATE 800 MG TABLET PO SCH ×3 (09:42→16:57)
[2019-10-26] MEDS: METOPROLOL TARTRATE 50MG TABLET PO SCH ×2 (09:42→20:44)
[2019-10-26] MEDS: ASPIRIN 81MG TABLET PO SCH (09:42)
[2019-10-26] MEDS: FOLIC ACID/VITAMIN B COMP W-C TABLET PO SCH (09:42)
[2019-10-26] MEDS: AMLODIPINE 5MG TABLET PO SCH (09:42)
[2019-10-26] MEDS: INSULIN GLARGINE UD 100 UNITS/ML SYR SUBCUT SCH ×2 (09:48→21:32)
[2019-10-26] MEDS: INSULIN LISPRO 100 UNITS/ML SUBCUT SCH ×4 (09:48→21:31)
[2019-10-26 12:00] VITALS: BP 115/71
[2019-10-26] MEDS: ENOXAPARIN 30MG/0.3ML SYR SUBCUT SCH (14:26)
[2019-10-26 16:00] VITALS: BP 124/72
[2019-10-26 20:00] VITALS: BP 140/77
[2019-10-26] MEDS: ATORVASTATIN CALCIUM 40MG TABLET PO SCH (20:44)
[2019-10-27 04:00] VITALS: BP 118/72
[2019-10-27] MEDS: BLOOD SUGAR DIAGNOSTIC STRIP TEST SCH ×4 (06:10→21:03)
[2019-10-27] MEDS: CLONIDINE 0.2MG TABLET PO SCH ×3 (06:10→21:02)
[2019-10-27] MEDS: INSULIN LISPRO 100 UNITS/ML SUBCUT SCH ×4 (06:16→21:43)
[2019-10-27 06:43] LABS: BASOPHILS % 0.8 % (0.0-2.0); EOSINOPHILS % 2.6 % (0.0-5.0); HEMOGLOBIN. 8.6 g/dL (14.0-18.0); LYMPHOCYTES % 24.3 % (20.0-50.0); MEAN CORPUSCULAR HEMOGLOBIN 31.4 pg (28.0-32.0); MEAN CORPUSCULAR VOLUME 91.3 fL (80.0-94.0); MEAN PLATELET VOLUME 7.9 fl (7.4-10.4); MONOCYTES % 5.3 % (2.0-8.0); PLATELET 433 x1000/uL (130-400); RED BLOOD CELL COUNT 2.74 mill/uL (4.7-6.1); RED CELL DISTRIBUTION WIDTH 14.1 % (11.6-14.6)
[2019-10-27 07:53] LABS: PHOSPHORUS 4.9 mg/dL (2.5-4.9)
[2019-10-27] MEDS: LOSARTAN POTASSIUM 50 MG TABLET PO SCH (09:00)
[2019-10-27] MEDS: METOPROLOL TARTRATE 50MG TABLET PO SCH ×2 (09:00→21:02)
[2019-10-27] MEDS ORDERED: AMLODIPINE 5MG TABLET PO SCH (09:00)
[2019-10-27] MEDS: SEVELAMER CARBONATE 800 MG TABLET PO SCH ×3 (09:22→17:32)
[2019-10-27] MEDS: ENOXAPARIN 30MG/0.3ML SYR SUBCUT SCH (09:22)
[2019-10-27] MEDS: ASPIRIN 81MG TABLET PO SCH (09:22)
[2019-10-27] MEDS: FOLIC ACID/VITAMIN B COMP W-C TABLET PO SCH (09:22)
[2019-10-27] MEDS: LEVOFLOXACIN 250MG PREMIX 50 ML IV SCH (09:31)
[2019-10-27] MEDS: INSULIN GLARGINE UD 100 UNITS/ML SYR SUBCUT SCH ×2 (09:33→21:44)
[2019-10-27 12:00] VITALS: BP 142/82
[2019-10-27] MEDS ORDERED: CLONIDINE 0.2MG TABLET PO PRN (15:34)
[2019-10-27 16:00] VITALS: BP 123/66
[2019-10-27 20:00] VITALS: BP 123/78
[2019-10-27] MEDS: ATORVASTATIN CALCIUM 40MG TABLET PO SCH (21:02)
[2019-10-28] VITALS: BP 117/66
[2019-10-28 04:00] VITALS: BP 112/66
[2019-10-28] MEDS: BLOOD SUGAR DIAGNOSTIC STRIP TEST SCH ×4 (05:52→21:00)
[2019-10-28] MEDS: INSULIN LISPRO 100 UNITS/ML SUBCUT SCH ×4 (05:52→21:00)
[2019-10-28] MEDS: CLONIDINE 0.2MG TABLET PO SCH ×2 (06:08→13:17)
[2019-10-28 08:00] VITALS: BP 99/48
[2019-10-28] MEDS: METOPROLOL TARTRATE 50MG TABLET PO SCH ×2 (09:00→22:03)
[2019-10-28] MEDS: LOSARTAN POTASSIUM 50 MG TABLET PO SCH (09:00)
[2019-10-28] MEDS: ASPIRIN 81MG TABLET PO SCH (09:01)
[2019-10-28] MEDS: SEVELAMER CARBONATE 800 MG TABLET PO SCH ×3 (09:01→17:25)
[2019-10-28] MEDS: ENOXAPARIN 30MG/0.3ML SYR SUBCUT SCH (09:01)
[2019-10-28] MEDS: FOLIC ACID/VITAMIN B COMP W-C TABLET PO SCH (09:01)
[2019-10-28] MEDS: INSULIN GLARGINE UD 100 UNITS/ML SYR SUBCUT SCH ×2 (11:23→22:04)
[2019-10-28 12:00] VITALS: BP 117/74
[2019-10-28 16:00] VITALS: BP 140/84
[2019-10-28 20:00] VITALS: BP 147/86
[2019-10-28] MEDS: ATORVASTATIN CALCIUM 40MG TABLET PO SCH (22:03)
[2019-10-28] MEDS: CLONIDINE 0.1MG TABLET PO SCH (22:03)
[2019-10-28] MEDS: EPOETIN ALFA 4000UNITS/ML VIAL SUBCUT SCH (22:04)
[2019-10-29] VITALS: BP 147/82
[2019-10-29 04:00] VITALS: BP 146/74
[2019-10-29] MEDS: CLONIDINE 0.1MG TABLET PO SCH (05:37)
[2019-10-29 07:08] LABS: BASOPHILS % 0.9 % (0.0-2.0); HEMATOCRIT. 25.7 % (42.0-52.0); LYMPHOCYTES % 22.8 % (20.0-50.0); MEAN CORPUSCULAR HEMOGLOBIN 31.8 pg (28.0-32.0); MEAN CORPUSCULAR VOLUME 90.7 fL (80.0-94.0); MEAN PLATELET VOLUME 7.5 fl (7.4-10.4); MONOCYTES % 5.4 % (2.0-8.0); NEUTROPHILS % 68.9 % (40.0-76.0); PLATELET 445 x1000/uL (130-400); RED BLOOD CELL COUNT 2.84 mill/uL (4.7-6.1); RED CELL DISTRIBUTION WIDTH 14.5 % (11.6-14.6)
[2019-10-29] MEDS: BLOOD SUGAR DIAGNOSTIC STRIP TEST SCH ×4 (07:20→21:00)
[2019-10-29 07:38] LABS: PHOSPHORUS 4.9 mg/dL (2.5-4.9)
[2019-10-29] MEDS: INSULIN LISPRO 100 UNITS/ML SUBCUT SCH ×4 (07:49→21:00)
[2019-10-29 08:00] VITALS: BP 125/74
[2019-10-29] MEDS: SEVELAMER CARBONATE 800 MG TABLET PO SCH ×3 (08:50→17:56)
[2019-10-29] MEDS: FOLIC ACID/VITAMIN B COMP W-C TABLET PO SCH (08:50)
[2019-10-29] MEDS: METOPROLOL TARTRATE 50MG TABLET PO SCH ×2 (09:00→21:00)
[2019-10-29] MEDS: LOSARTAN POTASSIUM 50 MG TABLET PO SCH (09:00)
[2019-10-29] MEDS: ENOXAPARIN 30MG/0.3ML SYR SUBCUT SCH (09:00)
[2019-10-29] MEDS: ASPIRIN 81MG TABLET PO SCH (09:00)
[2019-10-29] MEDS ORDERED: HEPARIN SODIUM 1,000 UNIT/1ML VIAL IV ONE (09:15)
[2019-10-29] MEDS: LEVOFLOXACIN 250MG PREMIX 50 ML IV SCH (11:05)
[2019-10-29] MEDS: INSULIN GLARGINE UD 100 UNITS/ML SYR SUBCUT SCH (11:18)
[2019-10-29 12:00] VITALS: BP 110/67
[2019-10-29 16:00] VITALS: BP 149/79
[2019-10-29] MEDS: CLONIDINE 0.2MG TABLET PO SCH (18:03)
[2019-10-29 20:00] VITALS: BP 113/75
[2019-10-29] MEDS: ATORVASTATIN CALCIUM 40MG TABLET PO SCH (21:04)
[2019-10-30] VITALS: BP 118/72
[2019-10-30 04:00] VITALS: BP 137/78
[2019-10-30] MEDS: BLOOD SUGAR DIAGNOSTIC STRIP TEST SCH ×4 (06:43→20:33)
[2019-10-30] MEDS: INSULIN LISPRO 100 UNITS/ML SUBCUT SCH ×4 (06:43→21:31)
[2019-10-30 08:00] VITALS: BP 117/71
[2019-10-30] MEDS: SEVELAMER CARBONATE 800 MG TABLET PO SCH ×3 (08:46→17:16)
[2019-10-30] MEDS: ASPIRIN 81MG TABLET PO SCH (08:47)
[2019-10-30] MEDS: FOLIC ACID/VITAMIN B COMP W-C TABLET PO SCH (08:47)
[2019-10-30] MEDS: ENOXAPARIN 30MG/0.3ML SYR SUBCUT SCH (08:47)
[2019-10-30] MEDS: LOSARTAN POTASSIUM 50 MG TABLET PO SCH (08:49)
[2019-10-30] MEDS: METOPROLOL TARTRATE 50MG TABLET PO SCH ×2 (08:49→20:33)
[2019-10-30] MEDS: CLONIDINE 0.2MG TABLET PO SCH ×2 (08:49→16:05)
[2019-10-30 12:00] VITALS: BP 141/82
[2019-10-30 16:00] VITALS: BP 154/83
[2019-10-30 20:00] VITALS: BP 141/80
[2019-10-30] MEDS: ATORVASTATIN CALCIUM 40MG TABLET PO SCH (20:33)
[2019-10-30] MEDS: EPOETIN ALFA 4000UNITS/ML VIAL SUBCUT SCH ×2 (20:34→20:40)
[2019-10-31 00:25] VITALS: BP 132/77
[2019-10-31 04:00] VITALS: BP 132/80
[2019-10-31 06:30] LABS: BASOPHILS % 0.9 % (0.0-2.0); HEMATOCRIT. 25.5 % (42.0-52.0); HEMOGLOBIN. 8.7 g/dL (14.0-18.0); LYMPHOCYTES % 27.2 % (20.0-50.0); MEAN CORPUSCULAR HEMOGLOBIN 31.3 pg (28.0-32.0); MEAN CORPUSCULAR VOLUME 91.2 fL (80.0-94.0); MEAN PLATELET VOLUME 7.1 fl (7.4-10.4); MONOCYTES % 5.2 % (2.0-8.0); NEUTROPHILS % 63.7 % (40.0-76.0); PLATELET 413 x1000/uL (130-400); RED BLOOD CELL COUNT 2.79 mill/uL (4.7-6.1); RED CELL DISTRIBUTION WIDTH 14.4 % (11.6-14.6)
[2019-10-31] MEDS: BLOOD SUGAR DIAGNOSTIC STRIP TEST SCH ×4 (07:29→21:29)
[2019-10-31] MEDS: INSULIN LISPRO 100 UNITS/ML SUBCUT SCH ×4 (07:29→21:44)
[2019-10-31 08:00] VITALS: BP 160/94
[2019-10-31] MEDS: METOPROLOL TARTRATE 50MG TABLET PO SCH ×2 (09:00→21:29)
[2019-10-31] MEDS: CLONIDINE 0.2MG TABLET PO SCH ×2 (09:00→17:00)
[2019-10-31] MEDS: LOSARTAN POTASSIUM 50 MG TABLET PO SCH (09:00)
[2019-10-31] MEDS: LEVOFLOXACIN 250MG TABLET PO SCH ×2 (11:06→11:09)
[2019-10-31] MEDS: SEVELAMER CARBONATE 800 MG TABLET PO SCH ×3 (11:06→17:29)
[2019-10-31] MEDS: FOLIC ACID/VITAMIN B COMP W-C TABLET PO SCH ×2 (11:06→11:08)
[2019-10-31 12:00] VITALS: BP 176/89
[2019-10-31 16:00] VITALS: BP 174/94
[2019-10-31 20:13] VITALS: BP 145/89
[2019-10-31] MEDS ORDERED: EPOETIN ALFA 4000UNITS/ML VIAL SUBCUT SCH (21:00)
[2019-10-31] MEDS: ATORVASTATIN CALCIUM 40MG TABLET PO SCH (21:28)
[2019-11-01 00:23] VITALS: BP 147/79
[2019-11-01 04:00] VITALS: BP 150/90
[2019-11-01] MEDS: INSULIN LISPRO 100 UNITS/ML SUBCUT SCH ×4 (06:32→20:58)
[2019-11-01] MEDS: BLOOD SUGAR DIAGNOSTIC STRIP TEST SCH ×4 (06:32→20:57)
[2019-11-01 06:51] LABS: BASOPHILS % 0.8 % (0.0-2.0); EOSINOPHILS % 2.6 % (0.0-5.0); HEMATOCRIT. 25.4 % (42.0-52.0); LYMPHOCYTES % 18.9 % (20.0-50.0); MEAN CORPUSCULAR HEMOGLOBIN 32.1 pg (28.0-32.0); MEAN CORPUSCULAR VOLUME 91.1 fL (80.0-94.0); MEAN PLATELET VOLUME 7.1 fl (7.4-10.4); MONOCYTES % 4.7 % (2.0-8.0); PLATELET 408 x1000/uL (130-400); RED BLOOD CELL COUNT 2.79 mill/uL (4.7-6.1); RED CELL DISTRIBUTION WIDTH 14.6 % (11.6-14.6)
[2019-11-01 08:00] VITALS: BP 151/89
[2019-11-01] MEDS: METOPROLOL TARTRATE 50MG TABLET PO SCH ×2 (09:47→20:58)
[2019-11-01] MEDS: SEVELAMER CARBONATE 800 MG TABLET PO SCH ×3 (09:47→17:55)
[2019-11-01] MEDS: CLONIDINE 0.2MG TABLET PO SCH ×2 (09:48→17:55)
[2019-11-01] MEDS: LOSARTAN POTASSIUM 50 MG TABLET PO SCH (09:48)
[2019-11-01 12:00] VITALS: BP 152/82
[2019-11-01 16:00] VITALS: BP 147/74
[2019-11-01 20:00] VITALS: BP 122/70
[2019-11-01] MEDS: ATORVASTATIN CALCIUM 40MG TABLET PO SCH (20:58)
[2019-11-02] VITALS: BP 142/81
[2019-11-02 04:00] VITALS: BP 138/79
[2019-11-02] MEDS: BLOOD SUGAR DIAGNOSTIC STRIP TEST SCH ×4 (06:20→21:31)
[2019-11-02 06:50] LABS: BASOPHILS % 0.8 % (0.0-2.0); EOSINOPHILS % 4.6 % (0.0-5.0); HEMATOCRIT. 25.2 % (42.0-52.0); HEMOGLOBIN. 8.4 g/dL (14.0-18.0); LYMPHOCYTES % 30.2 % (20.0-50.0); MEAN CORPUSCULAR HEMOGLOBIN 30.8 pg (28.0-32.0); MEAN CORPUSCULAR VOLUME 92.1 fL (80.0-94.0); MEAN PLATELET VOLUME 7.1 fl (7.4-10.4); MONOCYTES % 5.3 % (2.0-8.0); NEUTROPHILS % 59.1 % (40.0-76.0); PLATELET 392 x1000/uL (130-400); RED BLOOD CELL COUNT 2.73 mill/uL (4.7-6.1); RED CELL DISTRIBUTION WIDTH 14.8 % (11.6-14.6)
[2019-11-02] MEDS: INSULIN LISPRO 100 UNITS/ML SUBCUT SCH ×4 (07:31→21:00)
[2019-11-02 08:00] VITALS: BP 154/78
[2019-11-02] MEDS: FOLIC ACID/VITAMIN B COMP W-C TABLET PO SCH (08:55)
[2019-11-02] MEDS: SEVELAMER CARBONATE 800 MG TABLET PO SCH ×3 (08:55→17:38)
[2019-11-02] MEDS: LOSARTAN POTASSIUM 50 MG TABLET PO SCH (08:55)
[2019-11-02] MEDS: METOPROLOL TARTRATE 50MG TABLET PO SCH ×2 (08:58→21:32)
[2019-11-02] MEDS: CLONIDINE 0.2MG TABLET PO SCH ×2 (08:58→17:39)
[2019-11-02 12:00] VITALS: BP 147/80
[2019-11-02 16:00] VITALS: BP 133/84
[2019-11-02 20:00] VITALS: BP 147/88
[2019-11-02] MEDS: ATORVASTATIN CALCIUM 40MG TABLET PO SCH (21:32)
[2019-11-03] VITALS: BP 134/71
[2019-11-03 04:00] VITALS: BP 130/66
[2019-11-03] MEDS: BLOOD SUGAR DIAGNOSTIC STRIP TEST SCH ×3 (06:25→17:22)
[2019-11-03 07:43] LABS: PHOSPHORUS 3.9 mg/dL (2.5-4.9)
[2019-11-03 07:48] LABS: BASOPHILS % 0.9 % (0.0-2.0); EOSINOPHILS % 4.2 % (0.0-5.0); HEMATOCRIT. 24.4 % (42.0-52.0); HEMOGLOBIN. 8.5 g/dL (14.0-18.0); LYMPHOCYTES % 29.7 % (20.0-50.0); MEAN CORPUSCULAR HEMOGLOBIN 31.8 pg (28.0-32.0); MEAN CORPUSCULAR VOLUME 91.6 fL (80.0-94.0); MEAN PLATELET VOLUME 7.1 fl (7.4-10.4); MONOCYTES % 5.3 % (2.0-8.0); NEUTROPHILS % 59.9 % (40.0-76.0); PLATELET 383 x1000/uL (130-400); RED BLOOD CELL COUNT 2.66 mill/uL (4.7-6.1); RED CELL DISTRIBUTION WIDTH 14.9 % (11.6-14.6)
[2019-11-03 08:00] VITALS: BP 145/78
[2019-11-03] MEDS: INSULIN LISPRO 100 UNITS/ML SUBCUT SCH ×3 (08:07→17:50)
[2019-11-03] MEDS: CLONIDINE 0.2MG TABLET PO SCH ×2 (08:10→16:22)
[2019-11-03] MEDS: FOLIC ACID/VITAMIN B COMP W-C TABLET PO SCH (08:10)
[2019-11-03] MEDS: SEVELAMER CARBONATE 800 MG TABLET PO SCH ×3 (08:10→17:42)
[2019-11-03] MEDS: METOPROLOL TARTRATE 50MG TABLET PO SCH (08:11)
[2019-11-03] MEDS: LOSARTAN POTASSIUM 50 MG TABLET PO SCH (08:11)
[2019-11-03 12:00] VITALS: BP 127/69
[2019-11-03 16:00] VITALS: BP 143/83
[2019-11-03 18:05] VITALS: BP 150/97
[2019-11-03] MEDS ORDERED: EPOETIN ALFA 4000UNITS/ML VIAL SUBCUT SCH (21:00)
[2019-11-03] MEDS ORDERED: LIP40 MT (22:15)
[2019-11-03] MEDS ORDERED: SEVE800T8 MT (22:15)
[2019-11-03] MEDS ORDERED: CLON0.2T MT (22:15)
[2019-11-03] MEDS ORDERED: INSU100I28 SQ (22:15)
[2019-11-03] MEDS ORDERED: AMLO5TAB88 MT (22:15)
[2019-11-03] MEDS ORDERED: ASPI-1158 MT (22:15)
== END 2019-11-03 18:49 | disposition home health service (06) | DRG 952 ==
LOC: ER 19:50 → EDBEDREQ 21:52 → EDBEDREQSVC 21:52 → EDBEDREQTM 21:52 → ENRESERV 22:01 → 6WST 22:33 → 6EST 10-19 22:48
PROVIDERS: ADMIT Internal Medicine; ATTEND Internal Medicine
PROC: 5A1D70Z Performance of Urinary Filtration, Intermittent, Less than 6 Hours Per Day (ICD-10-PCS; 2019-10-12)
PROC: 5A1D70Z Performance of Urinary Filtration, Intermittent, Less than 6 Hours Per Day (ICD-10-PCS; 2019-10-14)
PROC: 5A1D70Z Performance of Urinary Filtration, Intermittent, Less than 6 Hours Per Day (ICD-10-PCS; 2019-10-16)
PROC: 05WY3JZ Revision of Synthetic Substitute in Upper Vein, Percutaneous Approach (ICD-10-PCS; 2019-10-17)
PROC: 3E05317 Introduction of Other Thrombolytic into Peripheral Artery, Percutaneous Approach (ICD-10-PCS; 2019-10-17)
PROC: 05WY3JZ Revision of Synthetic Substitute in Upper Vein, Percutaneous Approach (ICD-10-PCS; 2019-10-17)
PROC: 5A1D70Z Performance of Urinary Filtration, Intermittent, Less than 6 Hours Per Day (ICD-10-PCS; 2019-10-19)
PROC: 5A1D70Z Performance of Urinary Filtration, Intermittent, Less than 6 Hours Per Day (ICD-10-PCS; 2019-10-21)
PROC: 0JH63XZ Insertion of Tunneled Vascular Access Device into Chest Subcutaneous Tissue and Fascia, Percutaneous Approach (ICD-10-PCS; principal; 2019-10-22)
PROC: 02HV33Z Insertion of Infusion Device into Superior Vena Cava, Percutaneous Approach (ICD-10-PCS; 2019-10-22)
PROC: B5181ZA Fluoroscopy of Superior Vena Cava using Low Osmolar Contrast, Guidance (ICD-10-PCS; 2019-10-22)
PROC: B548ZZA Ultrasonography of Superior Vena Cava, Guidance (ICD-10-PCS; 2019-10-22)
PROC: 5A1D70Z Performance of Urinary Filtration, Intermittent, Less than 6 Hours Per Day (ICD-10-PCS; 2019-10-23)
PROC: 5A1D70Z Performance of Urinary Filtration, Intermittent, Less than 6 Hours Per Day (ICD-10-PCS; 2019-10-27)
PROC: 5A1D70Z Performance of Urinary Filtration, Intermittent, Less than 6 Hours Per Day (ICD-10-PCS; 2019-10-28)
PROC: 5A1D70Z Performance of Urinary Filtration, Intermittent, Less than 6 Hours Per Day (ICD-10-PCS; 2019-10-30)
PROC: 5A1D70Z Performance of Urinary Filtration, Intermittent, Less than 6 Hours Per Day (ICD-10-PCS; 2019-11-02)
DX: I63.512 Cerebral infarction due to unspecified occlusion or stenosis of left middle cerebral artery (principal); I21.4 Non-ST elevation (NSTEMI) myocardial infarction; I61.9 Nontraumatic intracerebral hemorrhage, unspecified; N17.9 Acute kidney failure, unspecified; E44.0 Moderate protein-calorie malnutrition; I48.91 Unspecified atrial fibrillation; E11.22 Type 2 diabetes mellitus with diabetic chronic kidney disease; I13.11 Hypertensive heart and chronic kidney disease without heart failure, with stage 5 chronic kidney disease, or end stage renal disease; E83.39 Other disorders of phosphorus metabolism; D63.8 Anemia in other chronic diseases classified elsewhere; G40.909 Epilepsy, unspecified, not intractable, without status epilepticus; F14.10 Cocaine abuse, uncomplicated; E78.5 Hyperlipidemia, unspecified; N18.6 End stage renal disease; E78.00 Pure hypercholesterolemia, unspecified; F17.210 Nicotine dependence, cigarettes, uncomplicated; J32.0 Chronic maxillary sinusitis; J44.9 Chronic obstructive pulmonary disease, unspecified; Z86.73 Personal history of transient ischemic attack (TIA), and cerebral infarction without residual deficits; Z99.2 Dependence on renal dialysis; Z79.4 Long term (current) use of insulin; Z79.82 Long term (current) use of aspirin; I25.2 Old myocardial infarction; Z79.899 Other long term (current) drug therapy; Z03.818 Encounter for observation for suspected exposure to other biological agents ruled out; R47.01 Aphasia; G81.91 Hemiplegia, unspecified affecting right dominant side; T82.858A Stenosis of other vascular prosthetic devices, implants and grafts, initial encounter
CPT/HCPCS: 36415; 36906; 70551; 71045; 76937; 77001; 80048; 80053; 80305; 80320; 82746; 82962; 83036; 83540; 83550; 83721; 83735; 83880; 84100; 84145; 84484; 85018; 85025; 86705; 86709; 86803; 87340; 92523; 92610; 93005; 93306; 93880; 96374; 97110; 97112; 97116; 97161; 97166; 97530; 97535; 99152; 99153; 99291; C1725; C1750; C1752; C1766; C1769; C1876; C1887; J0360; J0690; J0885; J1644; J1650; J1815; J1956; J2997; J3010; J3490; Q9967; U0003; G0480; G0500